=== PATIENT | female | born 1965 | race Caucasian/White ===

== ENCOUNTER 2018-02-20 05:07 | Observation (INO) ==
--- NOTE | 2018-02-15 14:09 | EKG Report ---
Test Performed on : 02/15/2018 1:56:51 PM Test Reason : PAT Blood Pressure : / mmHG Vent. Rate : 085 BPM Atrial Rate : 085 BPM P-R Int : 124 ms QRS Dur : 092 ms QT Int : 348 ms P-R-T Axes : 079 086 056 degrees QTc Int : 414 ms Normal sinus rhythm. Normal ECG No previous ECGs available Confirmed by Manjeet SMITH, Jhon Meza ([id number]) on 02/16/2018 7:20:53 PM
[2018-02-15 14:33] LABS: HEMATOCRIT 43.3 % (37.0-47.0); HEMOGLOBIN 14.2 g/dL (12.0-16.0); MCH 30.8 PG (27-31); MCHC 32.8 g/dL (33-37); MCV 93.9 FL (81-99); MPV 10.4 FL (7.4-10.4); RBC 4.61 XMIL (4.2-5.4); RDW 13.1 % (11.5-14.5); WBC 10.68 X1000 (4.8-10.8)
[2018-02-15 14:46] LABS: AGAP 9; BUN 9 mg/dL (8-22); CALCIUM 9.3 mg/dL (8.8-10.2); CHLORIDE 100 mmol/L (98-107); COSMO 272; CREATININE 0.8 mg/dL (0.5-0.9); ESTIMATED GFR > 60; GLUCOSE 88 mg/dL (70-104); SODIUM 137 mmol/L (136-145); TCO2 28 mmol/L (25-35)
[2018-02-20] MEDS ORDERED: VERSED ONE (06:07)
[2018-02-20] MEDS ORDERED: FENTANYL ONE ×2 (06:08→07:19)
[2018-02-20] MEDS ORDERED: DIPRIVAN 1% ONE (06:09)
[2018-02-20] MEDS ORDERED: XYLOCAINE-MPF 2% ONE (06:14)
[2018-02-20] MEDS ORDERED: QUELICIN (DOSE) ONE (06:14)
[2018-02-20] MEDS ORDERED: VANCOMYCIN 1 GM/NS 1 GM/250 ML IVPB ONE (06:22)
[2018-02-20] MEDS ORDERED: LR 0 ML ONE (06:22)
[2018-02-20] MEDS ORDERED: LR 1,000 ML ONE (06:23)
[2018-02-20] MEDS ORDERED: REGLAN ONE (06:41)
[2018-02-20] MEDS ORDERED: PEPCID ONE (06:41)
[2018-02-20] MEDS ORDERED: TRANSDERM-SCOP ONE (06:41)
[2018-02-20] MEDS ORDERED: METHYLENE BLUE 0.5% ONE (06:53)
--- NOTE | 2018-02-20 07:01 | Diag Imaging Result Doc PS360 ---
EXAM: LYMPHOSCINTIGRAPHY W/IMG HISTORY: LT MASTECTOMY, SENTINAL NODE BIOPSY TECHNIQUE: Nuclear medicine Lymphoscintigraphy COMPARISON: None. FINDINGS: The injection site was covered. There are at least two focal areas of increased activity lateral to the injection site. These are near the axilla. Electronically signed by Cesar Tyson 02/20/2018 6:59 AM
[2018-02-20] MEDS: DILAUDID ONE ×4 (08:37→08:56)
--- NOTE | 2018-02-20 08:46 | OPERATIVE NOTE ---
PROCEDURE DATE: 02/20/2018 PROCEDURES PERFORMED: 1. Left methylene blue injection. 2. [place] node biopsy x3. 3. Left total mastectomy. SURGEON: Silvio Yang MD TAPPING MACHINE OPERATOR: NEIL Farah PREOPERATIVE DIAGNOSIS: Cancer of the left breast. POSTOPERATIVE DIAGNOSIS: Cancer of the left breast. DESCRIPTION OF PROCEDURE: Satisfactory general endotracheal anesthesia was achieved, and 4 mL of methylene blue was injected in a periareolar fashion. The breast was massaged for 5 minutes. The breast and left arm were then prepped and draped in a sterile fashion. We made a transverse maria teresa in the axilla, incised the skin, and dissected through the subcutaneous tissue into the axillary fat. We then interrogated the axilla and identified the hot areas. We then dissected into the axillary fat and identified blue dye in 2 different nodes. We actually identified 4 nodes total, 3 were removed clipping off the feeding lymphatics and they were interrogated with 10 second counts, and the 3 hottest nodes were sent as sentinel nodes. A fourth node was kept for permanent because it did not have as much activity. Hemostasis was satisfactory. We then marked the skin in an elliptical fashion, incised the skin, and did the superior flap first putting our skin hooks under the edge of the skin and then used the electrocautery to dissect the superior flap to the clavicle, using countertraction on the breast parenchyma. We did the same inferiorly dissecting down to the rectus muscle inferiorly. We then retracted the skin flaps superiorly and inferiorly and used the electrocautery to take the breast off the pectoralis major muscle, off the rectus until we reached the lateral edge of the pectoralis major muscle. We then got confirmation that the sentinel nodes were negative on frozen section, so, we amputated the breast. We irrigated the area of dissection. Satisfactory hemostasis was achieved. We placed a Shane drain under the superior skin flap, bringing it out medially and then another drain into the axillary area, bringing it out laterally. These were secured to the skin level with 2-0 silk sutures. We then approximated the skin with alvin. Sterile dressings were applied. She tolerated it well and was sent to the recovery room in satisfactory condition. cc: Silvio Yang MD
[2018-02-20] MEDS ORDERED: ZOFRAN IV PRN (10:02)
[2018-02-20] MEDS: EFFEXOR XR PO SCH (10:28)
[2018-02-20] MEDS: PATIENT'S OWN MED PO SCH (10:28)
[2018-02-20] MEDS: LR 1,000 ML IV SCH ×2 (10:29→16:20)
[2018-02-20] MEDS: MORPHINE IV PRN ×2 (12:25→20:55)
[2018-02-20] MEDS: NORCO-10 PO PRN (14:43)
[2018-02-21] MEDS: NORCO-10 PO PRN ×3 (04:32→13:21)
[2018-02-21 06:39] LABS: HEMATOCRIT 35.5 % (37.0-47.0); HEMOGLOBIN 11.4 g/dL (12.0-16.0); MCH 31.1 PG (27-31); MCHC 32.1 g/dL (33-37); MCV 96.7 FL (81-99); MPV 10.5 FL (7.4-10.4); RBC 3.67 XMIL (4.2-5.4); RDW 13.5 % (11.5-14.5); WBC 9.88 X1000 (4.8-10.8)
[2018-02-21] MEDS: EFFEXOR XR PO SCH (08:40)
[2018-02-21] MEDS: PATIENT'S OWN MED PO SCH (08:41)
[2018-02-21 11:15] VITALS: BP 113/37
[2018-02-21] MEDS ORDERED: BENADRYL PO PRN (12:12)
--- NOTE | 2018-02-21 15:30 | GENERAL SURGERY PROGRESS NOTE ---
DATE: 02/21/2018 SUBJECTIVE: It's 2:55 p.m. Ms. Ashford is doing very well. She had a little bit of itching and required some Benadryl, but otherwise she has no complaints. Her bandages are dry. Her drain #1 has put out 79 yesterday, 15 today. Drain #2 42 yesterday, 15 today. PLAN: The plan will be to discharge her. The nurses will teach her how to empty the drains and record the drainage. She will return to see me in 2 to 3 days for evaluation of her wound and removal of one of her drains. Otherwise, she will resume her usual medicines. cc: Silvio Yang MD
== END 2018-02-21 15:58 | disposition home or self-care (01) ==
LOC: OR 05:07 → 4N 05:07
PROVIDERS: ADMIT Surgery; ATTEND Surgery
CPT/HCPCS: 78195; 80048; 85027; 88307; 88331; 93005; 93010; 94760; 94761; A9270; A9520; J0330; J1170; J2250; J2270; J3010; J3370; J7120; Q9968